=== PATIENT | female | born 2000 | race Caucasian/White ===

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

== ENCOUNTER 2021-07-01 16:42 | Emergency (ER) | payer OTHER, SELFPAY ==
[~2021-07-01] VITALS: Ht 154.9 cm; Wt 66.4 kg
[2021-07-01 16:43] VITALS: BP 135/81
== END 2021-07-01 21:30 | disposition home or self-care (01) ==
LOC: M ED 16:42
DX: S80.912A Unspecified superficial injury of left knee, initial encounter (principal); V00.318A Other snowboard accident, initial encounter; Y92.9 Unspecified place or not applicable; Y93.23 Activity, snow (alpine) (downhill) skiing, snowboarding, sledding, tobogganing and snow tubing; Y99.9 Unspecified external cause status; Z91.040 Latex allergy status

== ENCOUNTER → 2022-05-21 | Outpatient (REF) | payer MEDICAID, OTHER | LOC: M SFHCDERM 12:42 | PROVIDERS: ATTEND Nurse Practitioner Family | DX: D22.5 Melanocytic nevi of trunk (principal) ==

== ENCOUNTER 2023-12-06 19:51 | Emergency (ER) | payer OTHER, MEDICAID ==
[~2023-12-06] VITALS: Ht 157.5 cm; Wt 76.3 kg
[2023-12-06 22:41] VITALS: BP 104/62; TEMP 97.4; O2SAT 100
== END 2023-12-06 23:53 | disposition left against medical advice (07) ==
LOC: M ED 19:51
DX: Z53.21 Procedure and treatment not carried out due to patient leaving prior to being seen by health care provider (principal)